=== PATIENT | male | born 1955 | race Caucasian/White ===

== ENCOUNTER 2019-04-12 08:00 | Outpatient (CLI) | payer BC ==
[2019-04-12 12:10] LABS: BASOPHILS # (AUTO) 0.1 10^3/uL (0.0-0.1); BASOPHILS % (AUTO) 0.8 %; EOSINOPHILS # (AUTO) 0.3 10^3/uL (0.0-0.7); EOSINOPHILS % (AUTO) 3.7 %; HGB - HEMOGLOBIN 13.3 g/dL (14.0-18.0); LYMPHOCYTES # (AUTO) 1.9 10^3/uL (1.5-3.5); LYMPHOCYTES % (AUTO) 25.5 %; MEAN CORPUSCULAR HEMOGLOBIN 30.4 pg (27.0-31.0); MEAN CORPUSCULAR HGB CONC 31.7 g/dL (32.0-36.0); MEAN CORPUSCULAR VOLUME 95.9 fL (80.0-94.0); MEAN PLATELET VOLUME 11.2 fL (7.4-11.4); MONOCYTES # (AUTO) 0.7 10^3/uL (0.0-1.0); MONOCYTES % (AUTO) 8.9 %; NEUTROPHILS # (AUTO) 4.6 10^3/uL (1.5-6.6); NEUTROPHILS % (AUTO) 60.4 %; PLT - PLATELET COUNT 215 10^3/uL (130-450); RED BLOOD COUNT 4.38 10^6/uL (4.70-6.10); RED CELL DISTRIBUTION WIDTH 13.7 % (12.0-15.0); WHITE BLOOD COUNT 7.6 x10^3/uL (4.8-10.8)
[2019-04-12 12:45] LABS: ALBUMIN 4.1 g/dL (3.2-5.5); ALBUMIN/GLOBULIN RATIO 1.4 (1.0-2.2); ALKALINE PHOSPHATASE 65 IU/L (42-121); ALT ALANINE AMINOTRANSFERASE 25 IU/L (10-60); AST ASPARTATE AMINOTRANSFERASE 21 IU/L (10-42); BILIRUBIN,TOTAL 0.6 mg/dL (0.2-1.0); BUN - BLOOD UREA NITROGEN 23 mg/dL (6-20); CALCIUM 9.4 mg/dL (8.5-10.3); CARBON DIOXIDE - CO2 23 mmol/L (21-32); CHLORIDE 110 mmol/L (101-111); CHOL/HDL RATIO 4.2 (<5.0); CHOLESTEROL 212 mg/dL; GLUCOSE 124 mg/dL (70-100); HDL CHOLESTEROL 50 mg/dL; LDL CHOLESTEROL,CALCULATED 141 mg/dL; LDL/HDL RATIO 2.8 (<3.6); SODIUM 139 mmol/L (135-145); TOTAL PROTEIN 7.1 g/dL (6.7-8.2); URIC ACID 7.4 mg/dL (2.6-7.2); VLDL CHOLESTEROL 21 mg/dL
== END 2019-04-12 23:59 | disposition home or self-care (01) ==
LOC: LAB.WCP 08:00
PROVIDERS: ATTEND Family Medicine
DX: I10 Essential (primary) hypertension (principal); E78.5 Hyperlipidemia, unspecified; Z12.5 Encounter for screening for malignant neoplasm of prostate; E79.0 Hyperuricemia without signs of inflammatory arthritis and tophaceous disease
CPT/HCPCS: 36415; 80053; 80061; 83721; 84153; 84443; 84550; 85025

== ENCOUNTER 2020-05-31 08:00 | Outpatient (CLI) | payer BC, OTHER ==
[2020-05-31 13:22] LABS: BASOPHILS # (AUTO) 0.1 10^3/uL (0.0-0.1); BASOPHILS % (AUTO) 0.7 %; EOSINOPHILS # (AUTO) 0.3 10^3/uL (0.0-0.7); EOSINOPHILS % (AUTO) 4.1 %; HCT - HEMATOCRIT 43.8 % (42.0-52.0); HGB - HEMOGLOBIN 13.8 g/dL (14.0-18.0); LYMPHOCYTES # (AUTO) 1.6 10^3/uL (1.5-3.5); MEAN CORPUSCULAR HEMOGLOBIN 30.1 pg (27.0-31.0); MEAN CORPUSCULAR HGB CONC 31.5 g/dL (32.0-36.0); MEAN CORPUSCULAR VOLUME 95.6 fL (80.0-94.0); MEAN PLATELET VOLUME 11.4 fL (7.4-11.4); MONOCYTES # (AUTO) 0.6 10^3/uL (0.0-1.0); MONOCYTES % (AUTO) 8.3 %; NEUTROPHILS # (AUTO) 4.3 10^3/uL (1.5-6.6); NEUTROPHILS % (AUTO) 63.5 %; PLT - PLATELET COUNT 211 10^3/uL (130-450); RED BLOOD COUNT 4.58 10^6/uL (4.70-6.10); RED CELL DISTRIBUTION WIDTH 14.3 % (12.0-15.0); WHITE BLOOD COUNT 6.8 x10^3/uL (4.8-10.8)
[2020-05-31 13:42] LABS: ALBUMIN 4.1 g/dL (3.2-5.5); ALBUMIN/GLOBULIN RATIO 1.4 (1.0-2.2); ALKALINE PHOSPHATASE 72 IU/L (42-121); ALT ALANINE AMINOTRANSFERASE 23 IU/L (10-60); AST ASPARTATE AMINOTRANSFERASE 20 IU/L (10-42); BILIRUBIN,TOTAL 0.9 mg/dL (0.2-1.0); BUN - BLOOD UREA NITROGEN 16 mg/dL (6-20); CALCIUM 9.2 mg/dL (8.5-10.3); CARBON DIOXIDE - CO2 23 mmol/L (21-32); CHLORIDE 107 mmol/L (101-111); CHOL/HDL RATIO 4.1 (<5.0); CHOLESTEROL 205 mg/dL; GFR - MDRD 76 (>89); GLUCOSE 126 mg/dL (70-100); HDL CHOLESTEROL 50 mg/dL; LDL CHOLESTEROL,CALCULATED 131 mg/dL; LDL/HDL RATIO 2.6 (<3.6); POTASSIUM 4.3 mmol/L (3.5-5.0); SODIUM 138 mmol/L (135-145); TOTAL PROTEIN 7.1 g/dL (6.7-8.2); TRIGLYCERIDES 118 mg/dL; VLDL CHOLESTEROL 24 mg/dL
[2020-05-31 13:48] LABS: THYROID STIMULATING HORMONE 0.94 uIU/mL (0.34-5.60)
== END 2020-05-31 23:59 | disposition home or self-care (01) ==
LOC: LAB.WCP 08:00
PROVIDERS: ATTEND Family Medicine
DX: I10 Essential (primary) hypertension (principal); E78.5 Hyperlipidemia, unspecified; Z12.5 Encounter for screening for malignant neoplasm of prostate
CPT/HCPCS: 36415; 80053; 80061; 83721; 84153; 84443; 85025

== ENCOUNTER 2020-07-11 11:03 | Outpatient (CLI) | payer OTHER ==
--- NOTE | 2020-07-11 14:23 | XRAY Report ---
PROCEDURE: Knee 4 View LT INDICATIONS: KNEE PAIN, LEFT TECHNIQUE: 4 views of the left knee(s) were acquired. COMPARISON: None. FINDINGS: Bones: No fractures or dislocations. No suspicious bony lesions. Mild to moderate tricompartmental osteoarthritis is seen more prominent in medial femoral tibial compartment. Soft tissues: No joint effusion. No suspicious soft tissue calcifications. IMPRESSION: Mild to moderate tricompartmental osteoarthritis more prominent in medial femoral tibial compartment. No acute fracture or dislocation. No joint effusion. Reviewed by: Jordan Hutton MD on 07/11/2020 2:22 PM PDT Approved by: Jordan Hutton MD on 07/11/2020 2:22 PM PDT Station ID: [id number]
== END 2020-07-11 11:04 | disposition home or self-care (01) ==
LOC: DI.N 11:03
PROVIDERS: ATTEND Family Medicine
DX: M17.12 Unilateral primary osteoarthritis, left knee (principal)

== ENCOUNTER 2022-04-16 14:58 | Outpatient (CLI) | payer OTHER | END 2022-04-16 14:59 | disposition home or self-care (01) | LOC: DI 14:58 | PROVIDERS: ATTEND Physician Assistant | DX: I10 Essential (primary) hypertension (principal) | CPT/HCPCS: 93306 ==

== ENCOUNTER 2023-01-22 08:52 | Outpatient (CLI) | payer OTHER ==
[2023-01-22 12:28] LABS: BASOPHILS # (AUTO) 0.1 10^3/uL (0.0-0.1); BASOPHILS % (AUTO) 0.7 %; EOSINOPHILS # (AUTO) 0.3 10^3/uL (0.0-0.7); EOSINOPHILS % (AUTO) 4.6 %; HCT - HEMATOCRIT 42.4 % (42.0-52.0); HGB - HEMOGLOBIN 13.2 g/dL (14.0-18.0); LYMPHOCYTES # (AUTO) 1.7 10^3/uL (1.5-3.5); MEAN CORPUSCULAR HEMOGLOBIN 30.6 pg (27.0-31.0); MEAN CORPUSCULAR HGB CONC 31.1 g/dL (32.0-36.0); MEAN CORPUSCULAR VOLUME 98.1 fL (80.0-94.0); MEAN PLATELET VOLUME 11.6 fL (7.4-11.4); MONOCYTES # (AUTO) 0.7 10^3/uL (0.0-1.0); MONOCYTES % (AUTO) 9.7 %; NEUTROPHILS # (AUTO) 4.4 10^3/uL (1.5-6.6); NEUTROPHILS % (AUTO) 60.6 %; PLT - PLATELET COUNT 214 10^3/uL (130-450); RED BLOOD COUNT 4.32 10^6/uL (4.70-6.10); RED CELL DISTRIBUTION WIDTH 13.8 % (12.0-15.0); WHITE BLOOD COUNT 7.2 x10^3/uL (4.8-10.8)
[2023-01-22 13:28] LABS: THYROID STIMULATING HORMONE 1.16 uIU/mL (0.34-5.60)
[2023-01-22 14:52] LABS: ALBUMIN 4.1 g/dL (3.2-5.5); ALBUMIN/GLOBULIN RATIO 1.6 (1.0-2.2); ALKALINE PHOSPHATASE 79 IU/L (42-121); ALT ALANINE AMINOTRANSFERASE 18 IU/L (10-60); AST ASPARTATE AMINOTRANSFERASE 17 IU/L (10-42); BILIRUBIN,TOTAL 0.3 mg/dL (0.2-1.0); BUN - BLOOD UREA NITROGEN 18 mg/dL (6-20); CALCIUM 9.8 mg/dL (8.5-10.3); CARBON DIOXIDE - CO2 25 mmol/L (21-32); CHLORIDE 108 mmol/L (101-111); CHOL/HDL RATIO 3.8 (<5.0); CHOLESTEROL 182 mg/dL; GFR - MDRD 75 (>89); GLUCOSE 103 mg/dL (74-104); HDL CHOLESTEROL 48 mg/dL; LDL CHOLESTEROL,CALCULATED 109 mg/dL; LDL/HDL RATIO 2.3 (<3.6); POTASSIUM 4.4 mmol/L (3.5-4.5); SODIUM 138 mmol/L (135-145); TOTAL PROTEIN 6.6 g/dL (6.4-8.9); TRIGLYCERIDES 124 mg/dL (48-352); VLDL CHOLESTEROL 25 mg/dL
== END 2023-01-22 08:53 | disposition home or self-care (01) ==
LOC: LAB.N 08:52
PROVIDERS: ATTEND Physician Assistant
DX: R73.03 Prediabetes (principal); E78.5 Hyperlipidemia, unspecified; I10 Essential (primary) hypertension
CPT/HCPCS: 36415; 80053; 80061; 81599; 83036; 83721; 84443; 85025

== ENCOUNTER 2023-03-26 10:53 | Outpatient (CLI) | payer OTHER ==
--- NOTE | 2023-03-26 11:32 | Sleep Patient Instructions ---
Sleep Center Visit Summary - Patient Visit Information Reason for Visit: Initial consult for evaluation of sleep disordered breathing and other sleep issues. - Patient Instructions Instructions Attached: Sleep Study Additional Instructions: You will be completing a sleep study, either an in-lab polysomnography (PSG) or home sleep study (HST). You will follow-up in the sleep care office after the sleep study is completed to hear the results and talk about therapy, if needed. You will be called by our office staff to schedule this appointment, but you may contact us with any questions. - Clinic Information Contact: [facility] [address] [place] [address] [email or web address] T: [phone]
--- NOTE | 2023-03-26 11:37 | SLEEP CARE CONSULTATION ---
Information from patient questionnaire entered by Lj Vu. I have reviewed and concur with the information entered by Lj Vu. This document represents the service I personally performed and the decisions made by me, Junie Street ARNP. History of Present Illness Service Date and Time: 03/26/2023 1053 Reason for Visit: New patient Chief Complaint: reports: Snoring Date of Onset: 30+YRS Usual bedtime: 10-11PM Time it takes to fall asleep: 10-15MIN Snores at night: Yes Observed to quit breathing while asleep: No Sleeps alone due to snoring: No Number of times waking at night: 1 Reasons for waking at night: reports: Bathroom, Other (NOISE). denies: Choking, Snoring, Gasping for air Toss, Turn, or Twitch while sleeping: Yes Recalls having dreams: Yes Usually gets out of bed at: 5-530AM Feels refreshed in the morning: Yes Morning headache: No Sleepy or fatigued during the day: Yes (when not very active) Ever fallen asleep while driving: No Takes day naps: No Prior sleep studies: No Additional HPI information: I had the pleasure of seeing CARLEEN DALTON today regarding the possibility of him having a sleep disorder. His current complaint is snoring. He says his is concerned because of his snoring. His snoring is loud but his still sleeps in same room. She has not told him that he stops breathing at night. He says his wears hearing aides but takes them out at night. She is a heavy sleeper. He says he does feel rested in the morning and as long as he stays busy has no daytime sleepiness. He denies waking up gasping for air, choking or snoring. He will get up for the bathroom at night. He denies waking up with headaches but sometimes has neck stiffness. He has hypertension and is on 3 different medications as treatment. - Parasomnia Symptoms Ever been unable to move upon waking from sleep: No Walks in sleep: No Talks in sleep: No (maybe many years ago) Ever acted out dreams in sleep: No Ever felt weak in the knees when startled or emotional: No Bothered by creepy, crawly, restless sensations in legs: No Problems with memory or concentration: No Subjective Initial [place] Sleepiness Scale score: 6 (03/26/23) Past Medical History Past Medical History: reports: Hypertension, Gout, Impotence Social History The patient's occupation is a [employer]. Patient is and lives in [place]. Have you smoked in the past 12 months: No Alcohol use: Yes Alcohol amount and frequency: NOT MUCH ONCE OR TWICE A WEEK Caffeine use: Yes Caffeine amount and frequency: NOT MUCH ONCE OR TWICE A WEEK Family History Family history of sleep disordered breathing: Yes Family Hx Sleep Apnea: Father: Snoring Allergies and Home Medications Known drug allergies: Yes (DEMORAL) Drug allergies reviewed: Yes Home medication list reviewed: Yes (as listed) Allergy and home medication list: Allergies No Known Drug Allergies Allergy (Verified 03/24/23 11:39) Home Medications Medication Instructions Recorded Confirmed Last Taken Type Aspirin [Aspir 81] See Rx Instructions .ROUTE .COMPLEX 03/11/15 03/26/23 03/10/15 10:00 History allopurinoL [Allopurinol] See Rx Instructions .ROUTE .COMPLEX 03/11/15 03/26/23 03/10/15 10:00 History lisinopriL [Lisinopril] See Rx Instructions .ROUTE .COMPLEX 03/11/15 03/26/23 03/10/15 10:00 History Metoprolol Succinate [Kapspargo See Rx Instructions .ROUTE .COMPLEX 03/26/23 03/26/23 Unknown History Sprinkle] Tadalafil [Cialis] See Rx Instructions .ROUTE .COMPLEX 03/26/23 03/26/23 Unknown History amLODIPine [Norvasc] See Rx Instructions .ROUTE .COMPLEX 03/26/23 03/26/23 Unknown History Review of Systems Review of systems same as previous: Yes Weight gain over past 5 years: 20 Weight loss over past 5 years: 20 Cardiovascular: reports: high blood pressure Gastrointestinal: denies: heartburn Urinary: reports: frequency Neurological: reports: headaches Psychiatric: denies: anxiety, depression Ear/Nose/Throat: reports: wisdom teeth removed. denies: tonsillectomy Musculoskeletal: reports: neck pain Immunologic: reports: allergies to food or environment (crab) Physical Exam Vital signs obtained and entered by: LJ Roth MA Blood Pressure: 152/84 (LEFT ARM) Cuff size: regular Heart Rate: 62 O2 Saturation: 97 Height: 5 ft 10 in Weight: 262 lb 3.2 oz Body Mass Index: 37.6 BMI Classification: Obese Neck circumference: 18.25 Mouth and throat: narrow oropharynx Soft palate: long Hard palate: normal Uvula: long Uvula visualization: 25% Mallampati Class III Tongue: enlarged in size with teeth cloud on lateral edges Tonsils: small Neck: normal w/o lymphadenopathy or thyromegaly Heart: regular rate and rhythm Lungs: clear bilaterally Impression and Plan 1. Suspected Obstructive Sleep Apnea-Hypopnea Syndrome, as suggested by a history of loud and irregular snoring and hypertension. Narrow oropharynx and obesity are common predisposing factors for obstructive sleep apnea-hypopnea syndrome. I recommend proceeding to polysomnography to confirm the diagnosis and to assess severity. If the patient has significant sleep disordered breathing, a manual CPAP titration study will also be performed to find the optimal treatment pressure. I informed the patient of what the sleep studies involve and after some discussion, obtained agreement to proceed. The pathophysiology of obstructive sleep apnea-hypopnea syndrome was discussed with the patient and health risks of cardiovascular and cerebrovascular disease if not treated. Risks of drowsy driving discussed in detail and patient advised to avoid long distance driving and to hook puller at the first sign of drowsiness. Patient agreed to plan. * Schedule polysomnography * Avoid long distance driving or driving when feeling sleepy. * Avoid alcohol, sedative and muscle relaxant around bedtime. * Attempt to lose weight. * Review instructions provided by trained office staff on how to prepare for the sleep study. * Return for follow-up after sleep study completed. Counseling Topics: Weight loss health impact Plan: PSG Visit Type: In Office Time Spent with Patient (minutes): 31 Provider Statement: I spent 100% of the Face to Face Visit with the patient with greater than 50% spent counseling the patient and coordination of care.
[2023-03-26 11:38] VITALS: BP 152/84; O2SAT 97
== END 2023-03-26 10:54 | disposition home or self-care (01) ==
LOC: SC 10:53
PROVIDERS: ATTEND Nurse Practitioner Family
DX: I10 Essential (primary) hypertension (principal); R06.83 Snoring; E66.9 Obesity, unspecified; Z68.37 Body mass index [BMI] 37.0-37.9, adult
CPT/HCPCS: 99203; 99212

== ENCOUNTER 2023-05-05 20:34 | Outpatient (CLI) | payer OTHER | END 2023-05-05 20:35 | disposition home or self-care (01) | LOC: SC 20:34 | PROVIDERS: ATTEND Nurse Practitioner Family | DX: I10 Essential (primary) hypertension (principal); E66.9 Obesity, unspecified; Z68.37 Body mass index [BMI] 37.0-37.9, adult; G47.33 Obstructive sleep apnea (adult) (pediatric); G47.61 Periodic limb movement disorder | CPT/HCPCS: 95810 ==

== ENCOUNTER 2023-07-16 09:21 | Outpatient (CLI) | payer OTHER ==
--- NOTE | 2023-07-16 09:37 | Sleep Patient Instructions ---
Sleep Center Visit Summary - Patient Visit Information Reason for Visit: Sleep study follow-up - Patient Instructions Instructions Attached: CPAP Additional Instructions: You are choosing between CPAP trial with office visits and completing a titration sleep study in our sleep lab. Please call office to schedule with us so we can get you started on therapy. - Clinic Information Contact: [facility] [address] [place] [id number] [email or web address] T: [phone]
--- NOTE | 2023-07-16 09:45 | SLEEP CARE CONSULTATION ---
Information from patient questionnaire entered by Keeley Vu. I have reviewed and concur with the information entered by Keeley Vu. This document represents the service I personally performed and the decisions made by me, Junie Street ARNP. History of Present Illness Service Date and Time: 07/16/2023919 Initial [place] Sleepiness Scale score: 6 (03/26/23) Current [place] Sleepiness Scale score: 7 Additional HPI information: CARLEEN DALTON returns for follow up and results of the recently performed polysomnography. The sleep study showed very severe obstructive sleep apnea with an average AHI of 62.4 and bharath oxygen saturation of 81%. He had mild PLMs not contributing to sleep fragmentation. I explained the pathophysiology behind obstructive sleep apnea. We then spent quite a bit of time discussing different treatment options. For mild obstructive sleep apnea, surgery and oral appliance are alternatives to nasal CPAP therapy but in moderate or severe cases, nasal CPAP is the most effective and reliable treatment. I reviewed the impact of weight changes on sleep apnea and strongly recommended losing weight. After some discussion, the patient opted to go with the nasal CPAP therapy. A manual titration study will be ordered to find optimal pressure with office adjustments. I explained how CPAP machine works and what to expect when using the machine. Using CPAP every night in order to get used to it was emphasized. If the mask given is uncomfortable or is difficult to keep on through the night even with adjustment, contact the CPAP supplier as many will replace with another mask style if notified before 30 days. If snoring or perceives is not getting enough air or too much air from the machine, notify this office. Patient counseled not drink alcohol less than 4 hours before bedtime as it can increase snoring and apnea. Patient was cautioned about risks of drowsy driving until sleepiness symptoms resolve. Patient denies drowsy driving. Sleep Study - Results Type of Sleep Study: Polysomnography (COMPLETED 05/05/23) Prior sleep studies: No Polysomnography/Home Sleep Study results: IMPRESSION: The quality of the study is good. The patient had normal sleep efficiency. The sleep architecture was abnormal for sleep fragmentation and reduced amount of time spent in REM and slow wave sleep (N3). Respiratory monitoring showed very severe obstructive sleep apnea-hypopnea (AHI = 62.4) associated with frequent arousals, oxyhemoglobin desaturation and mild hypoxia (bharath oxygen saturation of 81%). The respiratory events occurred independently of sleep stage and body position (supine AHI = 81.6; non- supine = 50.58). Snore was loud in intensity. There was mild periodic leg movement of sleep not contributing to the sleep fragmentation. Cardiac rhythm was normal sinus rhythm without significant arrhythmia. No abnormal behavior (parasomnia) observed during the night. Allergies and Home Medications Known drug allergies: Yes (as listed) Drug allergies reviewed: Yes Home medication list reviewed: Yes (no changes) Allergy and home medication list: Allergies crab Allergy (Verified 07/14/23 11:04) Edema meperidine [From Demerol] Allergy (Verified 07/14/23 11:04) Dizziness Review of Systems Review of systems same as previous: Yes (no changes) Physical Exam Vital signs obtained and entered by: JUNIE MARTINEZ-Gonzalez Blood Pressure: 133/83 Cuff size: long (left arm) Heart Rate: 65 O2 Saturation: 97 Height: 5 ft 10 in Weight: 267 lb 4.8 oz Body Mass Index: 38.3 BMI Classification: Obese Impression and Plan 1. Obstructive Sleep Apnea-Hypopnea Syndrome, very severe, with lowest oxygen saturation of 81%. Obviously this is the cause of the patients symptoms of unrefreshed sleep, and excessive daytime sleepiness. Positive pressure therapy could benefit hypertension. After some discussion patient would like to confer with his before making a decision on whether to do a titration study or just starting with the CPAP. If he calls to just start CPAP therapy, he will be started on nasal autoCPAP therapy with pressure set at 4-15 cmH2O. A manual titration study will be completed if unable to find optimal treatment pressure with office adjustments. Compliance guidelines also reviewed. If he wants to start with a titration study, then he will be scheduled for a titration study and then we will follow-up with him with those results. 2. Hypoxemia, mild, with a bharath oxygen saturation of 81% and 33.3 minutes spent under 90%. The baseline oxygen saturation was normal with an average oxygen saturation of 92%. 3. Periodic limb movement, mild, that did not fragment patients sleep. Periodic limb movement of sleep (PLMS) is characterized by episodes of repetitive limb movements that occur during sleep and usually involve the lower limbs. The etiology is unknown. Sleep hygiene methods can also improve sleep as well as lifestyle changes such as regular exercise. Patient was advised that no treatment is needed at this time. If symptoms increase, then further evaluation is indicated. 4. Obesity, unspecified. Currently patients BMI is 38.3. Obesity increases the risk of apnea, CPAP pressure requirements and overall health risks especially cardiovascular and diabetes. Thus patient is advised to lose weight. * Titration study or Nasal auto CPAP therapy, pressure at 4-15 cm H2O. * Attempt to lose weight. * Avoid alcohol consumption near bedtime. * Avoid supine sleep until using CPAP. * The patient is again cautioned about driving until sleepiness completely resolves. * Return will depend on patient's choice to start therapy or do titration study first Counseling Topics: Weight loss health impact Follow up with Sleep Care in: other (to be determined) Visit Type: In Office Time Spent with Patient (minutes): 25 Provider Statement: I spent 100% of the Face to Face Visit with the patient with greater than 50% spent counseling the patient and coordination of care.
[2023-07-16 10:00] VITALS: BP 133/83; O2SAT 97
== END 2023-07-16 09:22 | disposition home or self-care (01) ==
LOC: SC 09:21
PROVIDERS: ATTEND Nurse Practitioner Family
DX: G47.33 Obstructive sleep apnea (adult) (pediatric) (principal); R09.02 Hypoxemia; G47.61 Periodic limb movement disorder; E66.9 Obesity, unspecified; Z68.38 Body mass index [BMI] 38.0-38.9, adult
CPT/HCPCS: 99212; 99213